=== PATIENT | female | born 1995 | race Two or more races ===

== ENCOUNTER 2017-05-15 09:35 | Emergency (ER) | payer MEDICAID ==
[~2017-05-15] VITALS: Ht 149.9 cm; Wt 81.6 kg
[2017-05-15 09:46] VITALS: Ht 149.9 cm; Wt 81.6 kg
[2017-05-15 12:05] VITALS: BP 123/76
== END 2017-05-15 12:06 | disposition home or self-care (01) ==
LOC: ED 09:35
DX: S16.1XXA Strain of muscle, fascia and tendon at neck level, initial encounter (principal); S20.212A Contusion of left front wall of thorax, initial encounter; S20.211A Contusion of right front wall of thorax, initial encounter; J44.9 Chronic obstructive pulmonary disease, unspecified; V43.52XA Car driver injured in collision with other type car in traffic accident, initial encounter; Y93.19 Activity, other involving water and watercraft; Y92.488 Other paved roadways as the place of occurrence of the external cause; Y99.8 Other external cause status